=== PATIENT | male | born 1945 | race Caucasian/White ===

== ENCOUNTER 2016-10-30 15:20 | Emergency (ER) | payer MEDICARE, OTHER | END 2016-10-30 18:00 | disposition home or self-care (01) | LOC: FER 15:20 | DX: S01.91XA Laceration without foreign body of unspecified part of head, initial encounter (principal); S30.0XXA Contusion of lower back and pelvis, initial encounter; I10 Essential (primary) hypertension; E78.5 Hyperlipidemia, unspecified; Z79.899 Other long term (current) drug therapy; W17.89XA Other fall from one level to another, initial encounter; Y92.009 Unspecified place in unspecified non-institutional (private) residence as the place of occurrence of the external cause | CPT/HCPCS: 72072; J1885 ==

== ENCOUNTER → 2020-12-02 | Day surgery (SDC) | payer MEDICARE, OTHER ==
[~2020-12-02] VITALS: Ht 177.8 cm; Wt 106.1 kg
[~2020-12-02] MED LIST: ALEVE220 M1 PO; ASPIRIN EC81 MG PO; FLOMAX0.4 MG PO; LIPITOR20 MG PO; OSTEO BI-FLEX1 EAC1 PO; PERCOCET 5-3251 EACH PO; ZESTRIL5 MG PO; ZYRTEC10 MG PO
[2020-12-02 06:37] LABS: HCT 47.3 % (42.0-52.0); HGB 15.8 g/dl (13.2-18.0); MCH 31.6 pg (25.0-31.0); MCHC 33.4 g/dL (32.0-36.0); MCV 94.6 fL (78.0-100.0); MPV 9.5 fL (6.0-9.5); RDW 13.6 % (11.5-14.0); WBC 6.9 K/uL (4.0-10.5)
[2020-12-02 07:31] LABS: ALBUMIN 3.7 g/dL (3.4-5.0); BILIRUBIN - TOTAL 0.6 mg/dL (0.2-1.0); CREATININE 0.83 mg/dL (0.67-1.17); GLOBULIN (CALCULATION) 3.5 g/dL; TOTAL PROTEIN 7.2 g/dL (6.4-8.2)
== END | disposition home or self-care (01) ==
LOC: FAS 06:02
PROVIDERS: Orthopaedic Surgery
DX: G56.01 Carpal tunnel syndrome, right upper limb (principal); G56.21 Lesion of ulnar nerve, right upper limb; I11.9 Hypertensive heart disease without heart failure; E78.5 Hyperlipidemia, unspecified; M19.90 Unspecified osteoarthritis, unspecified site; Z79.82 Long term (current) use of aspirin; Z79.899 Other long term (current) drug therapy
CPT/HCPCS: 36415; 71045; 80053; 93005; J0690; J1100; J2250; J2405; J2704; J3010; J7120